=== PATIENT | female | born 1965 | race Caucasian/White ===

== ENCOUNTER → 2017-05-01 | Outpatient (CLI) | payer OTHER ==
[2017-05-01 08:26] LABS: BASOPHIL % 1.2 % (0-2); PLATELET COUNT 229 x10^3mcL (130-400); RED CELL DISTRIBUTION WIDTH 12.8 % (11.5-14.5)
[2017-05-01 08:45] LABS: ALBUMIN 3.8 g/dL (3.4-5.0); ALKALINE PHOSPHATASE 70 U/L (46-116); ALT/SGPT 38 U/L (14-59); AST/SGOT 26 U/L (15-37); BILIRUBIN TOTAL 0.23 mg/dL (0.20-1.00); CALCIUM 8.8 mg/dL (8.5-10.1); CARBON DIOXIDE 26.4 mmol/L (21-32); CHLORIDE SERUM 105 mmol/L (98-107); GFR1 > 60 mL/min; GLUCOSE SERUM 103 mg/dL (74-106); HDL CHOLESTEROL 57 mg/dL (40-60); POTASSIUM SERUM 4.3 mmol/L (3.5-5.1); SODIUM SERUM 141 mmol/L (136-145); TOTAL PROTEIN, SERUM 7.6 g/dL (6.4-8.2); TRIGLYCERIDES 185 mg/dL (<150); URIC ACID 5.2 mg/dL (2.6-6.0)
[2017-05-01 08:56] LABS: C REACTIVE PROTEIN < 0.2 mg/dL (<=0.9); CHOLESTEROL 214 mg/dL (<200); CHOLESTEROL/HDL RATIO 3.8
== END | disposition home or self-care (01) ==
LOC: LB 07:38
PROVIDERS: Internal Medicine Cardiovascular Disease
DX: E11.9 Type 2 diabetes mellitus without complications (principal); E78.5 Hyperlipidemia, unspecified

== ENCOUNTER 2017-08-14 11:25 | Inpatient (IN) | payer OTHER ==
[~2017-08-14] VITALS: Ht 162.6 cm; Wt 65.8 kg
[2017-08-14 12:02] LABS: BASOPHIL % 0.7 % (0-2); PLATELET COUNT 281 x10^3mcL (130-400); RED CELL DISTRIBUTION WIDTH 13.1 % (11.5-14.5)
[2017-08-14 12:06] LABS: CALCIUM 9.6 mg/dL (8.5-10.1); CARBON DIOXIDE 28.3 mmol/L (21-32); CHLORIDE SERUM 104 mmol/L (98-107); CREATININE SERUM 0.8 mg/dL (0.6-1.0); GFR1 > 60 mL/min; GLUCOSE SERUM 122 mg/dL (74-106); SODIUM SERUM 142 mmol/L (136-145)
[2017-08-14 14:43] VITALS: BP 158/76
[2017-08-14 15:16] LABS: MAGNESIUM 2.4 mg/dL (1.8-2.4); PHOSPHOROUS 3.1 mg/dL (2.5-4.9)
[2017-08-14 15:25] LABS: T3 TOTAL 1.23 ng/mL
[2017-08-14 15:26] LABS: FREE T4 1.03 ng/dL (0.76-1.46); FREE THYROXINE INDEX 3.1 ug/dL (1.4-4.5)
[2017-08-14 20:11] LABS: microscopic required? YES; urine erythrocyte TRACE (NEGATIVE)
[2017-08-14 20:19] LABS: AMPHETAMINE QUAL UR NONE DETECTED (NEG <=1000)
[2017-08-14 21:32] VITALS: BP 122/66
[2017-08-15 05:36] VITALS: BP 124/69
[2017-08-15 05:58] LABS: BASOPHIL % 0.8 % (0-2); PLATELET COUNT 241 x10^3mcL (130-400); RED CELL DISTRIBUTION WIDTH 13.3 % (11.5-14.5)
[2017-08-15 06:28] LABS: CALCIUM 8.5 mg/dL (8.5-10.1); CARBON DIOXIDE 27.5 mmol/L (21-32); CHLORIDE SERUM 108 mmol/L (98-107); CREATININE SERUM 0.9 mg/dL (0.6-1.0); GFR1 > 60 mL/min; GLUCOSE SERUM 100 mg/dL (74-106); PHOSPHOROUS 4.4 mg/dL (2.5-4.9); SODIUM SERUM 144 mmol/L (136-145)
[2017-08-15 08:47] VITALS: BP 121/57
[2017-08-15] MEDS ORDERED: BENICAR20 M1 PO (13:27)
[2017-08-15 13:45] VITALS: BP 143/74
[2017-08-15 14:11] VITALS: BP 143/74
[2017-08-15] MEDS ORDERED: COZAAR100 MG PO (14:11)
[2017-08-15 14:12] VITALS: BP 143/74
== END 2017-08-15 14:56 | disposition home or self-care (01) | DRG 74 ==
LOC: ED 11:25 → DU 13:11
PROVIDERS: Emergency Medicine; ADMIT Family Medicine
DX: G90.8 Other disorders of autonomic nervous system (principal); E11.65 Type 2 diabetes mellitus with hyperglycemia; I10 Essential (primary) hypertension; Z68.24 Body mass index [BMI] 24.0-24.9, adult; Z90.49 Acquired absence of other specified parts of digestive tract
CPT/HCPCS: 83880; 84439; J2060; J2405; J3490; J7030; Q0092

== ENCOUNTER → 2017-09-12 | Outpatient (CLI) | payer OTHER ==
[~2017-09-12] MED LIST: BENICAR20 M1 PO; COZAAR100 MG PO
[2017-09-13 16:21] LABS: BASOPHIL % 0.8 % (0-2); PLATELET COUNT 268 x10^3mcL (130-400); RED CELL DISTRIBUTION WIDTH 13.3 % (11.5-14.5)
[2017-09-13 16:28] LABS: ALBUMIN 4.2 g/dL (3.4-5.0); ALKALINE PHOSPHATASE 83 U/L (46-116); ALT/SGPT 41 U/L (14-59); AST/SGOT 25 U/L (15-37); BILIRUBIN TOTAL 0.2 mg/dL (0.20-1.00); CALCIUM 8.7 mg/dL (8.5-10.1); CARBON DIOXIDE 29.5 mmol/L (21-32); CHLORIDE SERUM 104 mmol/L (98-107); CREATININE SERUM 0.8 mg/dL (0.6-1.0); FREE T4 0.87 ng/dL (0.76-1.46); GFR1 > 60 mL/min; GLUCOSE SERUM 93 mg/dL (74-106); MAGNESIUM 2.5 mg/dL (1.8-2.4); POTASSIUM SERUM 4.1 mmol/L (3.5-5.1); SODIUM SERUM 140 mmol/L (136-145)
[2017-09-13 16:29] LABS: C REACTIVE PROTEIN < 0.2 mg/dL (<=0.9); TOTAL PROTEIN, SERUM 8.3 g/dL (6.4-8.2)
== END | disposition home or self-care (01) ==
LOC: LB 13:33
DX: N95.1 Menopausal and female climacteric states (principal); G43.109 Migraine with aura, not intractable, without status migrainosus
CPT/HCPCS: 82672; 84402; 84403; 84439

== ENCOUNTER → 2017-09-17 | Outpatient (CLI) | payer OTHER | END | disposition home or self-care (01) | LOC: MI 08:59 | PROC: BR30ZZZ Magnetic Resonance Imaging (MRI) of Cervical Spine (ICD-10-PCS; principal; 2017-09-17) | DX: M54.2 Cervicalgia (principal) ==